=== PATIENT | female | born 1990 ===

== ENCOUNTER 2016-12-10 12:33 | Emergency (ER) | payer SELFPAY ==
[2016-12-10 12:48] VITALS: PULSE 91; RESP 20; O2SAT 100
[2016-12-10 13:12] LABS: APPEARANCE,URINE Clear; BILIRUBIN,URINE NEGATIVE (NEGATIVE); COLOR,URINE Yellow; GLUCOSE, URINE (UA) NEGATIVE (NEGATIVE); KETONES,URINE NEGATIVE (NEGATIVE); LEUKOCYTE ESTERASE ,URINE NEGATIVE (NEGATIVE); NITRATE,URINE NEGATIVE (NEGATIVE); OCCULT BLOOD,URINE 2+ (NEG-TRACE); UROBILINOGEN,URINE 0.2 (0.2-1.0 EU)
[2016-12-10 13:23] LABS: WBC,URINE 0-1 (0-5AV/HPF)
[2016-12-10 16:02] VITALS: BP 123/68; TEMP 97.6
== END 2016-12-10 15:50 | disposition home or self-care (01) | DRG 761 ==
LOC: ED 12:33
DX: N83.201 Unspecified ovarian cyst, right side (principal)
CPT/HCPCS: 81001; 84703; 99282; 99284

== ENCOUNTER 2017-02-27 11:39 | Emergency (ER) | payer MEDICAID ==
[2017-02-27 11:39] VITALS: O2SAT 100
[2017-02-27 12:39] VITALS: RESP 20; TEMP 98
[2017-02-27] MEDS ORDERED: ASPIRIN 81 MG CHEWABLE CTB PO ONE (12:46)
[2017-02-27] MEDS ORDERED: ASPIRIN 81 MG CHEWABLE CTB ONE (12:53)
[2017-02-27 15:09] VITALS: BP 101/62; PULSE 65
== END 2017-02-27 14:41 | disposition home or self-care (01) | DRG 556 ==
LOC: ED 11:39
DX: M79.602 Pain in left arm (principal); M25.512 Pain in left shoulder; R06.02 Shortness of breath
CPT/HCPCS: 71010; 84703; 93005; 99283

== ENCOUNTER 2017-05-23 11:09 | Emergency (ER) | payer MEDICAID, OTHER ==
[2017-05-23 11:09] VITALS: O2SAT 100
[2017-05-23 12:10] VITALS: BP 130/83; PULSE 93; RESP 16; TEMP 96.6
== END 2017-05-23 12:02 | disposition home or self-care (01) ==
LOC: ED 11:09
DX: T78.3XXA Angioneurotic edema, initial encounter (principal)
CPT/HCPCS: 99282; 99283

== ENCOUNTER 2017-05-24 22:07 | Emergency (ER) | payer OTHER ==
[2017-05-24 22:28] VITALS: RESP 20; O2SAT 99
[2017-05-24] MEDS ORDERED: SOLUMEDROL 125 MG/2 ML 125 MG/2 ML PDS IM ONE (22:38)
[2017-05-24] MEDS ORDERED: DIPHENHYDRAMINE 25 MG CAP PO ONE (22:38)
[2017-05-24] MEDS ORDERED: SOLUMEDROL 125 MG/2 ML 125 MG/2 ML PDS ONE (22:40)
[2017-05-24] MEDS ORDERED: DIPHENHYDRAMINE 25 MG CAP ONE (22:40)
[2017-05-24 23:34] VITALS: BP 121/82; PULSE 79; TEMP 98.1
== END 2017-05-24 23:43 | disposition home or self-care (01) ==
LOC: ED 22:07
DX: T78.3XXD Angioneurotic edema, subsequent encounter (principal)
CPT/HCPCS: 99282 ×3; J2930; 87430

== ENCOUNTER 2017-12-07 14:39 | Emergency (ER) | payer OTHER ==
[2017-12-07 14:48] VITALS: RESP 16; TEMP 96.3
[2017-12-07] MEDS ORDERED: ONDANSETRON 4 MG ODT BU ONE (14:48)
[2017-12-07] MEDS ORDERED: ONDANSETRON 4 MG ODT ONE (14:50)
[2017-12-07 15:30] VITALS: BP 116/76; PULSE 87; O2SAT 99
== END 2017-12-07 15:24 | disposition home or self-care (01) ==
LOC: ED 14:39
DX: R51 Headache (principal); R11.0 Nausea; R42 Dizziness and giddiness
CPT/HCPCS: 99282

== ENCOUNTER 2018-01-30 15:01 | Emergency (ER) | payer OTHER ==
[2018-01-30 15:31] VITALS: BP 125/81; PULSE 98; RESP 18; TEMP 97; O2SAT 100
== END 2018-01-30 16:08 | disposition home or self-care (01) ==
LOC: ED 15:01
DX: K08.89 Other specified disorders of teeth and supporting structures (principal); Z98.818 Other dental procedure status
CPT/HCPCS: 99282

== ENCOUNTER 2018-02-02 10:27 | Emergency (ER) | payer OTHER ==
[2018-02-02 10:27] VITALS: O2SAT 100
[2018-02-02 10:42] VITALS: BP 135/82; PULSE 79; RESP 16; TEMP 97.3
== END 2018-02-02 11:12 | disposition home or self-care (01) ==
LOC: ED 10:27
DX: G44.099 Other trigeminal autonomic cephalgias (TAC), not intractable (principal)
CPT/HCPCS: 99282

== ENCOUNTER 2018-04-23 10:52 | Emergency (ER) | payer SELFPAY ==
[2018-04-23 11:16] VITALS: TEMP 97; O2SAT 98
[2018-04-23 11:50] LABS: CALCIUM 8.8 mg/dl (8.5-10.1); CARBON DIOXIDE 28.4 mEq/L (21-32); CREATININE 0.8 mg/dl (0.60-1.00); POTASSIUM 3.9 mMol/L (3.5-5.1)
[2018-04-23 12:03] VITALS: BP 130/86; PULSE 93; RESP 16
== END 2018-04-23 12:33 | disposition home or self-care (01) | DRG 880 ==
LOC: ED 10:52
DX: F41.9 Anxiety disorder, unspecified (principal); R00.2 Palpitations; R06.02 Shortness of breath; R20.2 Paresthesia of skin
CPT/HCPCS: 36415; 80048; 93005; 99283

== ENCOUNTER 2018-09-27 17:03 | Emergency (ER) | payer OTHER ==
[2018-09-27 17:35] VITALS: BP 125/81; PULSE 78; RESP 16; TEMP 96.4; O2SAT 99
[2018-09-27 18:07] LABS: BASOPHILS % (AUTO) 1 % (0-3); EOSINOPHILS % (AUTO) 0 % (0-9); HEMATOCRIT 44 % (35-47); HEMOGLOBIN 14.3 gm/dl (12.0-15.5); LYMPHOCYTES % (AUTO) 33.2 % (10-50); MEAN CORPUSCULAR HEMOGLOBIN 28.7 pg (27.0-32.0); MEAN CORPUSCULAR HGB CONC 32.7 gm/dl (32.0-36.0); MEAN CORPUSCULAR VOLUME 88 fL (81-99); MONOCYTES % (AUTO) 3.5 % (0-12); NEUTROPHILS % (AUTO) 62.1 % (37-80)
[2018-09-27 18:15] LABS: APPEARANCE,URINE Clear; BILIRUBIN,URINE NEGATIVE (NEGATIVE); COLOR,URINE Light yellow; GLUCOSE, URINE (UA) NEGATIVE (NEGATIVE); KETONES,URINE NEGATIVE (NEGATIVE); LEUKOCYTE ESTERASE ,URINE NEGATIVE (NEGATIVE); NITRATE,URINE NEGATIVE (NEGATIVE); OCCULT BLOOD,URINE NEGATIVE (NEG-TRACE); PH,URINE 6.5; UROBILINOGEN,URINE 0.2 (0.2-1.0 EU)
[2018-09-27 18:37] LABS: CARBON DIOXIDE 29.2 mEq/L (21-32); CREATININE 0.78 mg/dl (0.60-1.00); POTASSIUM 3.9 mMol/L (3.5-5.1)
[2018-09-27 18:54] LABS: BACTERIA TRACE (< 1+); CRYSTALS NEGATIVE (0-3 AVE/HPF); EPITHELIAL CELLS 0-2 (SQUAMOUS); RBC,URINE NEG (0-3AV/HPF); WBC,URINE 0-1 (0-5AV/HPF)
== END 2018-09-27 19:00 | disposition home or self-care (01) ==
LOC: ED 17:03
DX: K52.9 Noninfective gastroenteritis and colitis, unspecified (principal)
CPT/HCPCS: 36415; 80048; 81001; 85025; 99282

== ENCOUNTER 2018-10-29 09:29 | Emergency (ER) | payer OTHER ==
[2018-10-29 09:43] VITALS: RESP 16; TEMP 96.7
[2018-10-29 10:31] VITALS: BP 122/92; PULSE 98; O2SAT 97
== END 2018-10-29 10:31 | disposition home or self-care (01) ==
LOC: ED 09:29
DX: J02.9 Acute pharyngitis, unspecified (principal); R05 Cough
CPT/HCPCS: 71045; 87430; 99282; 99283

== ENCOUNTER 2019-02-25 12:49 | Emergency (ER) | payer OTHER ==
[2019-02-25 13:18] VITALS: RESP 18; TEMP 97.3
[2019-02-25 13:46] LABS: BASOPHILS % (AUTO) 1 % (0-3); EOSINOPHILS % (AUTO) 1 % (0-9); HEMATOCRIT 39 % (35-47); HEMOGLOBIN 13.1 gm/dl (12.0-15.5); LYMPHOCYTES % (AUTO) 37.4 % (10-50); MEAN CORPUSCULAR HEMOGLOBIN 29.6 pg (27.0-32.0); MEAN CORPUSCULAR HGB CONC 33.4 gm/dl (32.0-36.0); MEAN CORPUSCULAR VOLUME 89 fL (81-99); MONOCYTES % (AUTO) 4.5 % (0-12); NEUTROPHILS % (AUTO) 56.6 % (37-80)
[2019-02-25 13:55] LABS: INR 1.07 (0.86-1.12)
[2019-02-25 14:26] LABS: CALCIUM 8.5 mg/dl (8.5-10.1); CARBON DIOXIDE 28.6 mEq/L (21-32); CREATININE 0.72 mg/dl (0.60-1.00); POTASSIUM 3.8 mMol/L (3.5-5.1)
[2019-02-25 15:39] VITALS: BP 136/96; PULSE 86; O2SAT 99
== END 2019-02-25 16:00 | disposition short-term general hospital (02) | DRG 379 ==
LOC: ED 12:49
DX: K92.2 Gastrointestinal hemorrhage, unspecified (principal)
CPT/HCPCS: 36415; 74176; 80048; 82272; 84703; 85025; 85610; 99283

== ENCOUNTER 2019-02-26 01:19 | Emergency (ER) | payer OTHER ==
[2019-02-26 01:25] VITALS: RESP 16; TEMP 97.9; O2SAT 100
[2019-02-26] MEDS: SODIUM CHLORIDE 0.9% FLUSH 10 ML SOL IV PRN (01:50)
[2019-02-26] MEDS: SODIUM CHLORIDE 0.9% 1000ML 1,000 ML IV ONE (01:51)
[2019-02-26 01:55] LABS: BASOPHILS % (AUTO) 1 % (0-3); EOSINOPHILS % (AUTO) 2 % (0-9); HEMATOCRIT 40 % (35-47); HEMOGLOBIN 13.2 gm/dl (12.0-15.5); LYMPHOCYTES % (AUTO) 36.4 % (10-50); MEAN CORPUSCULAR HGB CONC 33.3 gm/dl (32.0-36.0); MEAN CORPUSCULAR VOLUME 90 fL (81-99); MONOCYTES % (AUTO) 5.2 % (0-12); NEUTROPHILS % (AUTO) 55.9 % (37-80)
[2019-02-26 03:01] VITALS: BP 100/50; PULSE 78
== END 2019-02-26 03:01 | disposition home or self-care (01) | DRG 379 ==
LOC: ED 01:19
DX: K92.2 Gastrointestinal hemorrhage, unspecified (principal)
CPT/HCPCS: 85025; 96365; 99282; 99284

== ENCOUNTER 2019-05-16 15:49 | Emergency (ER) | payer OTHER ==
[2019-05-16 16:14] VITALS: RESP 18; TEMP 97.3
[2019-05-16 16:20] VITALS: BP 128/85
[2019-05-16 16:35] LABS: BASOPHILS % (AUTO) 1 % (0-3); EOSINOPHILS % (AUTO) 0 % (0-9); HEMATOCRIT 40 % (35-47); HEMOGLOBIN 13.3 gm/dl (12.0-15.5); LYMPHOCYTES % (AUTO) 35.1 % (10-50); MEAN CORPUSCULAR HEMOGLOBIN 29.3 pg (27.0-32.0); MEAN CORPUSCULAR HGB CONC 33.3 gm/dl (32.0-36.0); MEAN CORPUSCULAR VOLUME 88 fL (81-99); MONOCYTES % (AUTO) 3.8 % (0-12); NEUTROPHILS % (AUTO) 59.7 % (37-80)
[2019-05-16 16:49] LABS: CALCIUM 8.7 mg/dl (8.5-10.1); CARBON DIOXIDE 29.1 mEq/L (21-32); CREATININE 0.74 mg/dl (0.60-1.00); POTASSIUM 3.8 mMol/L (3.5-5.1)
[2019-05-16 18:20] VITALS: PULSE 84; O2SAT 99
== END 2019-05-16 18:19 | disposition home or self-care (01) | DRG 379 ==
LOC: ED 15:49
DX: K62.5 Hemorrhage of anus and rectum (principal)
CPT/HCPCS: 36415; 80048; 85025; 99282; 99283